=== PATIENT | male | born 2005 | race Hispanic/Latino ===

== ENCOUNTER 2025-04-11 15:22 | Emergency (ER) | payer OTHER, SELFPAY ==
--- NOTE | ~2025-04-11 | XR_ITS ---
EXAMINATION: XR knee RT 3V DATE: 04/11/2025 15:45 INDICATION: Knee pain x3 weeks TECHNIQUE: Right knee x-rays were obtained. COMPARISON: None. FINDINGS: Normal-appearing right knee x-rays IMPRESSION: 1. No gross acute or aggressive bony or soft tissue abnormality. 2. For persisting knee pain refractory to conservative therapy, consider correlation with MRI for optimal evaluation. Reviewed, dictated and finalized at location A. IPITATOR SUPERVISOR IMPRESSION: 1. No gross acute or aggressive bony or soft tissue abnormality. 2. For persisting knee pain refractory to conservative therapy, consider correl ation with MRI for optimal evaluation.
--- NOTE | 2025-04-11 15:25 | ED.LOWEXIN ---
HPI - Extremity Injury (Lower) General Chief Complaint: Extremity Problem,Nontraumatic Stated Complaint: R KNEE PAIN Source: patient and RN notes reviewed Mode of arrival: ambulatory Limitations: no limitations History of Present Illness HPI Narrative: Patient is a 19-year-old male who presents to the [facility] with complaints of right anterior knee pain. Patient states that the pain is been present for 3-4 weeks. He states that the pain started shortly after he did a lot of walking around [place]. He does not recall specific injury. He denies swelling. He has been wearing a brace to the knee without relief. He is neurovascularly intact distally. Sensation is intact. Related Data Allergies Allergy/AdvReac Type Severity Reaction Status Date / Time No Known Allergies Allergy Verified 04/11/25 15:33 Review of Systems Review of Systems: CONSTITUTIONAL: Denies fever, chills, or sweats. EYES: Denies visual changes, redness, or discharge. ENT: Denies otalgia and sore throat CARDIOVASCULAR: Denies chest pain, palpitations, or edema. RESPIRATORY: Denies cough or dyspnea. GASTROINTESTINAL: Denies abdominal pain, nausea, vomiting, or diarrhea. GENITOURINARY: Denies dysuria or hematuria. SKIN: Denies rash or itching. MUSCULOSKELETAL: Reports right knee pain. NEUROLOGIC: Denies headache, numbness, or weakness. Pertinent positives per HPI. PMFSH Comments At the time of my signature, I reviewed and agree with the nursing past medical, surgical, social, and family history. There is no relevant family history pertinent to the patient complaint. Exam Narrative: GENERAL: This is a well-nourished, well-developed patient, in no apparent distress. HEAD: normocephalic, atraumatic. EYES: PERRL. Sclera clear/white. Vision is grossly intact. EARS: External ears normal, auditory canals clear and without drainage, TMs normal without perforation. Hearing grossly intact. NOSE: External nose normal with no obvious nasal discharge, nares without redness, no rhinorrhea. THROAT: Mucous membranes moist, posterior pharynx clear. NECK: Neck supple, non-tender without lymphadenopathy, masses or thyromegaly. CARDIOVASCULAR: Regular rate and rhythm without murmurs, gallops, or rubs. RESPIRATORY: Clear to auscultation. Breath sounds equal bilaterally. No wheezes, rales, or rhonchi. GASTROINTESTINAL: Abdomen soft, non-tender, nondistended. Bowel sounds are active. No hepato-splenomegaly, or palpable masses. No guarding. SKIN: warm, intact with no suspicious lesions or rash, good texture and turgor. NEURO: awake, alert, and oriented to person, place and time. There were no obvious focal neurologic abnormalities. EXTREMITIES: Patient is able to bear weight and ambulate. No surface of trauma or obvious effusion. No overlying erythema or warmth. The R knee is with/without obvious asymmetry or deformity when comparing to the L. Nontender to palpate of the patella, no effusion. Distal motor and neurovascular status intact. Course Course Level of Care: Express Care Visit Vital Signs Vital signs: Vital Signs Temperature 98.6 F 04/11/25 15:35 Pulse Rate 91 04/11/25 15:35 Respiratory Rate 16 04/11/25 15:35 Blood Pressure 125/75 04/11/25 15:35 Pulse Oximetry 98 04/11/25 15:35 Temperature 98.6 F 04/11/25 15:35 Pulse Rate 91 04/11/25 15:35 Respiratory Rate 16 04/11/25 15:35 Blood Pressure 125/75 04/11/25 15:35 Pulse Oximetry 98 04/11/25 15:35 Reviewed MDM - Extremity Injury (Lower) MDM Narrative Medical decision making narrative: Minimize activities that aggravate the condition, such as climbing stairs. Switching from high impact activities (like jogging or tennis) to lower impact activities (like swimming or cycling) will put less stress on your knee. For pain, you may take: Tylenol 650-1000mg by mouth every 4-6 hours. Do not exceed 4000mg in 24 hours. Advil (Ibuprofen) 600 mg by mouth every 6 hours. Do not exceed 2400mg in 24 hours. Please schedule a follow up visit with your personal physician for further evaluation and treatment within 1-2week OR if your symptoms persist, change or worsen significantly before you can contact your personal physician then please, without delay, go to the emergency department for further evaluation. Differential Diagnosis Differential diagnosis: Likely acute internal derangement of knee and other (knee sprain, patella fracture) Imaging Data Attestation: I personally reviewed and interpreted this imaging study as follows: Radiologist's impression: [address] [place] [address] XRay Report Signed Patient: Yazan Madrid : 2005 MR#: [id number] Age: 19 Acct:[id number] Loc: [facility] ADM Date: 04/11/[address]: Ordering Physician: Amber Howe APRN Date of Service: 04/11/25 Procedure(s): XR knee RT 3V Accession Number(s): [id number] cc: Amber Howe APRN; DIRECTOR GENERAL PHYSICIAN~ EXAMINATION: XR knee RT 3V DATE: 04/11/2025 15:45 INDICATION: Knee pain x3 weeks TECHNIQUE: Right knee x-rays were obtained. COMPARISON: None. FINDINGS: Normal-appearing right knee x-rays IMPRESSION: 1. No gross acute or aggressive bony or soft tissue abnormality. 2. For persisting knee pain refractory to conservative therapy, consider correlation with MRI for optimal evaluation. Reviewed, dictated and finalized at location A. ATION PROTECTION TECHNICIAN Please be advised this is a medical document. It is intended for [id number] communication. It is written in medical language and may contain unfamiliar abbreviations or verbiage. Medical documents are intended to carry relevant information, facts as evident, and the clinical opinion of the practitioner at the time of the encounter. This report may have been done utilizing a voice recognition system. Attempts have been made to correct errors. However, there may be uncorrected grammatical, spelling, and recognition errors present. The file time of this note does not necessarily represent the time of service. Dictated By: Sae Carreon MD 04/11/25 1547 Signed By: <Electronically signed by Sae Carreon MD in OV> 04/11/25 1548 Critical Care Time Critical Care Time Critical Care Time: No Discharge Plan Discharge Clinical Impression: Right knee sprain Qualifiers: Encounter type: initial encounter Involved ligament of knee: unspecified ligament Qualified Code(s): S83.91XA - Sprain of unspecified site of right knee, initial encounter Patient Disposition: Home Condition: Stable Instructions: Knee Sprain (ED), P.R.I.C.E. Treatment (ED) Additional Instructions: Minimize activities that aggravate the condition, such as climbing stairs. Switching from high impact activities (like jogging or tennis) to lower impact activities (like swimming or cycling) will put less stress on your knee. For pain, you may take: Tylenol 650-1000mg by mouth every 4-6 hours. Do not exceed 4000mg in 24 hours. Advil (Ibuprofen) 600 mg by mouth every 6 hours. Do not exceed 2400mg in 24 hours. Please schedule a follow up visit with your personal physician for further evaluation and treatment within 1-2week OR if your symptoms persist, change or worsen significantly before you can contact your personal physician then please, without delay, go to the emergency department for further evaluation. Patient Language: Taiwanese Follow-up/Referrals: Sebas Guallpa MD [Physician, Orthopedics] UNKNOWN,DOCTOR [Non-Staff] Time of Disposition: 15:52
[2025-04-11 15:35] VITALS: BP 125/75; PULSE 91; RESP 16; TEMP 37; O2SAT 98
== END 2025-04-11 15:57 | disposition home or self-care (01) ==
PROVIDERS: Emergency Provider Nurse Practitioner
DX: S83.91XA Sprain of unspecified site of right knee, initial encounter (principal); X50.3XXA Overexertion from repetitive movements, initial encounter; Y93.01 Activity, walking, marching and hiking
CPT/HCPCS: 73562; 99203; G0463